=== PATIENT | male | born 1960 | race Two or more races ===

== ENCOUNTER 2024-08-22 02:55 | Emergency (ER) | payer MEDICAID, OTHER ==
[~2024-08-22] VITALS: Ht 172.7 cm; Wt 68.3 kg
--- NOTE | 2024-08-22 03:31 | ED.PDOC ---
Miranda. trauma (HPI) HPI Comments 63-year-old male who came to ER for fall/head injury. Patient was at a [employer], intoxicated with alcohol, went out where he accidentally slipped and fell backwards, hitting the back of his head on some rocks. Noted 3 cm laceration of the back of his head. Unsure if there was any loss of consciousness. Patient later started having episodes nausea and vomiting, Chief Complaint: Fall Injury Time Seen by MD: 03:30 Reviewed notes: Nurses Notes Home Meds Active Scripts Acetaminophen (Acetaminophen Er) 650 Mg Tab, 650 MG PO TIDPRN PRN for 5 Days, #15 TAB Prov:MARCELO LUND MD 08/22/24 Information Source: Patient Mode of Arrival: Wheelchair Severity: Moderate Timing: Minutes Duration: Since onset Prehospital treatment: None Location: Head Location of laceration: Head (Occipital) Mechanism: Blunt trauma, Direct blow, Fall Associated signs and symtoms: ETOH Review of Systems REVIEW OF SYSTEMS: No fever, no chills, or fatigue HEENT: No sore throat, no earache, no congestion, no neck pain. (+) laceration occipital area Cardiac: No chest pain. No palpitations. Lungs: No shortness of breath, no cough. GI: No nausea, no vomiting, no diarrhea, no constipation, no abdominal pain : No dysuria, frequency, or urgency. No hematuria. Musculoskeletal: No joint pain , no joint swelling, no extremity edema. Skin: No rash, no itching. Neuro: No headache, no dizziness, no weakness Vital Signs Vital Signs Date Time Temp Pulse Resp B/P (MAP) Pulse Ox O2 Delivery O2 Flow Rate FiO2 08/22/24 05:45 Room Air* 0 21 08/22/24 05:43 97.7 65 20 118/70 (86) 98 97.7 Physical Exam General: Awake, alert patient appears intoxicated Skin: Skin in warm, dry and intact. Appropriate color for ethnicity. Nailbeds pink with no cyanosis. HEENT: Hematoma over the occipital scalp with a proximally 6 cm irregular laceration. The head is normocephalic and atraumatic. Conjunctivae are clear without exudates or hemorrhage. Sclera is non-icteric. EOM are intact. No signs of nystagmus. Eyelids are normal in appearance without swelling or lesions. Oral mucosa is pink and moist Neck: The neck is supple with normal range of motion. No JVD. No C-spine tenderness Cardiac: Heart rate and rhythm are normal. No murmurs, gallops, or rubs are auscultated. Respiratory: No signs of respiratory distress. Lung sounds are clear in all lobes bilaterally without rales, rhonchi, or wheezes. Abdominal: Abdomen is soft, non-tender without distention. Bowel sounds are present and normoactive in all four quadrants. Extremities: Upper and lower extremities are atraumatic in appearance without deformity or edema. Neurological: The patient is awake, alert and oriented to person, place, and time with normal speech. Speech is clear. There is no facial asymmetry. Sensation intact. Past Medical History PAST MEDICAL HISTORY: Denies Surgical History: Denies all surgeries Family History Family History: Reviewed,noncontributory to illness Social History Smoker: Non-Smoker Alcohol: Denies ETOH Use Drugs: Denies Drug Use Lives In: Home Was a procedure done? Was a procedure done?: Yes Sedation Sedation?: No Laceration Repair : Location Occipital area Length 6 cm Anesthetic: Nothing Laceration Repair Prep: Betadine Laceration Repair Wound Comple: epidermis/dermis repair Laceration Repair: Skin, SQ, Neon (#8) Informed consent obtained: Yes Risks, benefits, and alternati: Yes Differential Diagnosis Multiple Trauma: Closed Head Injury, Fractures, Cerebral Contusion, Hematoma, Laceration X-Ray, Labs, Meds, VS Vital Signs Date Time Temp Pulse Resp B/P (MAP) Pulse Ox O2 Delivery O2 Flow Rate FiO2 08/22/24 05:45 Room Air* 0 21 08/22/24 05:43 97.7 65 20 118/70 (86) 98 97.7 08/22/24 03:25 97.9 65 18 109/78 (88) 95 97.9 Lab Test 08/22/24 04:43 Range/Units White Blood Count 6.5 4.4-10.8 10^3/uL Red Blood Count 5.13 4.5-5.90 10^6/uL Hemoglobin 16.8 13.5-17.5 g/dL Hematocrit 49.5 41.0-53.0 % Mean Corpuscular Volume 96.5 80.0-100.0 fL Mean Corpuscular Hemoglobin 32.7 H 28.0-32.0 pg Mean Corpuscular Hemoglobin Concent 33.9 32.0-36.0 g/dL Red Cell Distribution Width 14.9 H 11.8-14.3 % Platelet Count 176 140-450 10^3/uL Mean Platelet Volume 8.1 6.9-10.8 fL Neutrophils (%) (Auto) 66.3 37.0-80.0 % Lymphocytes (%) (Auto) 24.6 10.0-50.0 % Monocytes (%) (Auto) 6.8 0.0-12.0 % Eosinophils (%) (Auto) 1.5 0.0-7.0 % Basophils (%) (Auto) 0.8 0.0-2.0 % Neutrophils # (Auto) 4.3 1.6-8.6 10 ^3/uL Lymphocytes # (Auto) 1.6 0.4-5.4 10 ^3/uL Monocytes # (Auto) 0.4 0-1.3 10 ^3/uL Eosinophils # (Auto) 0.1 0-0.8 10 ^3/uL Basophils # (Auto) 0 0-0.2 10 ^3/uL Nucleated Red Blood Cells 0.3 % Platelet Estimate Adequate Sodium Level 142 136-145 mmol/L Potassium Level 4.4 3.5-5.1 mmol/L Chloride Level 106 98-107 mmol/L Carbon Dioxide Level 26 20-31 mmol/L Anion Gap 10 5-15 Blood Urea Nitrogen 11 9-23 mg/dL Creatinine 0.97 0.700-1.30 mg/dL Glomerular Filtration Rate Calc 88 >90 mL/min BUN/Creatinine Ratio 11.3 10.0-20.0 Serum Glucose 114 H 74-106 mg/dL Calcium Level 9.7 8.7-10.4 mg/dL Plasma/Serum Blood Alcohol 247.9 H <10 mg/dL Current Medications Medications (Trade) Dose Ordered Sig/Chris Route Start Time Stop Time Status Last Admin Diphtheria/ Tetanus/Acell Pertussis (Boostrix T-Dap) 0.5 ml ONCE ONCE IM 08/22/24 03:15 08/22/24 03:16 DC 08/22/24 05:51 Acetaminophen (Tylenol Tablet) 650 mg ONCE ONCE PO 08/22/24 04:00 08/22/24 04:01 DC 08/22/24 05:50 Ondansetron HCl (Zofran Po) 4 mg ONCE ONCE PO 08/22/24 04:00 08/22/24 04:01 DC 08/22/24 05:50 EXAM: CT HEAD WITHOUT CONTRAST INDICATION: Head injury TECHNIQUE: CT of the head without intravenous contrast. Radiation Dose : 1. Head: CT Dose: CTDI volume is 63.01 mGy. Dose-length product is 1241.52 mGy*cm The dose indicators for CT are the volume Computed Tomography (CT) Dose Index (CTDIvol) and the Dose Length Product (DLP), and are measured in units of mGy and mGy-cm, respectively. These indicators are not patient dose, but values generated from the CT scanner acquisition factors. The report includes radiation exposure data for exposures received during this examination. COMPARISON: None FINDINGS: There is no evidence of acute intracranial hemorrhage, extra-axial collection, mass effect, midline shift, herniation or hydrocephalus. The ventricles, sulci and cisterns are age appropriate. Haris cisterna magna. The garcia-white differentiation is intact. Left maxillary mucosal sinus disease. The remaining visualized paranasal sinuses and mastoid air cells are clear. Moderate left posterior parietal scalp soft tissue swelling and edema. The surrounding soft tissues and osseous structures are otherwise unremarkable. IMPRESSION: 1. No acute intracranial abnormality. 2. Moderate left posterior parietal scalp soft tissue swelling and edema. Radiation optimization: All CT scans at this facility use at least one of these dose optimization techniques: automated exposure control mA and/or kV adjustment per patient size (includes targeted exams where dose is matched to clinical indication) or iterative reconstruction. Time of 1ST Reevaluation: 03:26 Reevaluation 1ST: Unchanged Patient Education/Counseling: Prognosis Family Education/Counseling: Prognosis Departure 1 Departure Time of Disposition: 05:17 Impression: Primary Impression: Head injury Additional Impressions: Scalp laceration Alcohol intoxication Disposition: HOME / SELF CARE / HOMELESS Condition: Stable Additional Instructions: INSTRUCCIONES DE MAYA DE Urgencias Instrucciones: Jennie atentamente todas las instrucciones proporcionadas en tana paquete. Las grapas deben retirarse en un plazo de 5 a 7 clark. Regrese a urgencias o al mdico de cabecera para yancy revisin de la herida en 3 clark. Mantenga la herida seca phillip las primeras 24 horas. Despus, lvela suavemente con agua y jabn y mantngala seca. Aunque le hayan dado el maya del Departamento de Emergencias, esto no significa que tenga un "certificado de buena donya". Hoy no se lam realizado ningn diagnstico definitivo para mike sntomas. Es posible que ests en proceso de desarrollar yancy enfermedad grave. Es por eso que debe regresar al servicio de urgencias sin falta si presenta algn sntoma nuevo o que empeora (especialmente si mike sntomas incluyen dolor en el pecho, dificultad para respirar, dolor abdominal, fiebre, dolor de vadim, confusin, dificultad para milton o caminar). Prasad es muy importante que consulte a un mdico de atencin primaria dentro de los prximos 3 a 5 clark para realizar un seguimiento. Si no puede conseguir yancy kennedy, regrese al servicio de urgencias para yancy nueva evaluacin. Lesin en la vadim: Instrucciones de cuidado Descripcin general La mayora de las lesiones en la vadim son leves. Los golpes, morales y raspaduras en la vadim y la brandi suelen cicatrizar jose y pueden tratarse igual que las lesiones en otras partes del cuerpo. Aunque es poco frecuente, de vez en cuando surge un problema ms grave despus de llegar a casa. Por eso, conviene estar atento a los sntomas phillip ida o dos clark. El seguimiento es fundamental para león tratamiento y seguridad. Asegrese de programar y acudir a todas mike citas, y llame a león mdico si tiene algn problema. Prasad es recomendable estar al tanto de los resultados de mike pruebas y llevar yancy lista de los medicamentos que john. Account Specialist puedes cuidarte en casa? Siga las instrucciones de león mdico. El mdico le indicar si necesita que alguien lo vigile de cerca phillip las prximas 24 horas o ms. Tmatelo con calma phillip los prximos clark o ms si no te sientes jose. Pregntele a león mdico cundo puede volver a realizar actividades cj conducir un automvil, andar en bicicleta u operar maquinaria. Cundo debes pedir ayuda? Llame al 911 en cualquier momento que considere que necesita atencin de emergencia. Por ejemplo, llame si: Tienes yancy convulsin. Te desmayaste (perdiste el conocimiento). Ests confundido o no puedes mantenerte despierto. Tienes un dolor de vadim que empeora y no desaparece. Tiene nuevos cambios en la visin o yancy pupila (la parte [place] en el medio del flaca) es ms yasmani que la otra. Tiene dificultad para hablar, problemas de equilibrio o disminucin de la coordinacin. Llame a león mdico ahora o busque atencin mdica inmediata si: Tiene vmitos nuevos o peores. Te sientes menos alerta. Tienes nueva debilidad o entumecimiento en alguna parte de tu cuerpo. Tiene sntomas nuevos, cj pensamiento confuso o cambios de humor. Preste atencin a los cambios en león donya y asegrese de comunicarse con león mdico si: No mejoras cj esperabas Crditos por lesin en la vadim: Instrucciones de cuidado Actualizado al: 3 de diciembre 2023 Autor: Personal de [facility] [employer] Junta de revisin clnica Toda la educacin de [facility], [employer] es revisada por un equipo que incluye mdicos, enfermeras, profesionales avanzados, dietistas registrados y otros profesionales de la donya. e-Prescriptions Acetaminophen (Acetaminophen Er) 650 Mg Tab 650 MG PO TIDPRN PRN for 5 Days, #15 TAB Prov: MARCELO LUND MD 08/22/24 Comments 63-year-old male with a head injury resulting in scalp laceration or hematoma. Laceration repaired in the ED. Patient improved. He is able to ambulate on his own. Patient and family would like to go home. Discussed return precautions. I reviewed the following notes from the pt's past medical encounters: N/A The following tests were ordered, and results were reviewed by me: (See diagnostic results section) The following test were independently interpreted by me: N/A Additional information was gathered from interviewing the following independent historians: Patient's family members at bedside I reviewed and agreed with the following test results read by other providers: N/A I discussed treatments and results with patient Decision regarding hospitalization or escalation of hospital level of care: Risks and benefits of admission for further treatment of patient's condition was considered however due to patient's stable condition patient will be discharged to follow up closely or return to care for worsening of condition or inability to follow up. Critical Care Note Critical Care Time?: No Stability Stability form required: No Heart Score Heart Score: Heart Score Response (Comments) Value History N/A 0 EKG N/A 0 Age N/A 0 Risk Factors N/A 0 Troponin N/A 0 Total 0 I personally scribed for MARCELO LUND MD ([email or web address]) on 08/22/24 at 03:31. Electronically submitted by Nik Mcmillan ([email or web address]). I personally scribed for MARCELO LUND MD ([email or web address]) on 08/22/24 at 04:42. Electronically submitted by Nik Mcmillan ([facility]). MARCELO LUND MD Aug 22, 2024 03:31
--- NOTE | 2024-08-22 04:04 | DVH ---
EXAM: CT HEAD WITHOUT CONTRAST INDICATION: Head injury TECHNIQUE: CT of the head without intravenous contrast. Radiation Dose : 1. Head: CT Dose: CTDI volume is 63.01 mGy. Dose-length product is 1241.52 mGy*cm The dose indicators for CT are the volume Computed Tomography (CT) Dose Index (CTDIvol) and the Dose Length Product (DLP), and are measured in units of mGy and mGy-cm, respectively. These indicators are not patient dose, but values generated from the CT scanner acquisition factors. The report includes radiation exposure data for exposures received during this examination. COMPARISON: None FINDINGS: There is no evidence of acute intracranial hemorrhage, extra-axial collection, mass effect, midline s hift, herniation or hydrocephalus. The ventricles, sulci and cisterns are age appropriate. Haris cisterna magna. The garcia-white differentiation is intact. Left maxillary mucosal sinus disease. The remaining visualized paranasal sinuses and mastoid air estephania ls are clear. Moderate left posterior parietal scalp soft tissue swelling and edema. The surrounding soft tissues a nd osseous structures are otherwise unremarkable. IMPRESSION: 1. No acute intracranial abnormality. 2. Moderate left posterior parietal scalp soft tissue swelling and edema. Radiation optimization: All CT scans at this facility use at least one of these dose optimization tammy hniques: automated exposure control mA and/or kV adjustment per patient size (includes targeted exam s where dose is matched to clinical indication) or iterative reconstruction.
[2024-08-22 05:13] LABS: Basophils # (auto) 0 10 ^3/uL (0-0.2); Basophils % (auto) 0.8 % (0.0-2.0); Eosinophils # (auto) 0.1 10 ^3/uL (0-0.8); Eosinophils % (auto) 1.5 % (0.0-7.0); Hematocrit 49.5 % (41.0-53.0); Hemoglobin 16.8 g/dL (13.5-17.5); Lymphocytes # (auto) 1.6 10 ^3/uL (0.4-5.4); Lymphocytes % (auto) 24.6 % (10.0-50.0); Mean Corpuscular Hemoglobin 32.7 pg (28.0-32.0); Mean Corpuscular Hgb Conc. 33.9 g/dL (32.0-36.0); Mean Corpuscular Volume 96.5 fL (80.0-100.0); Monocytes # (auto) 0.4 10 ^3/uL (0-1.3); Monocytes % (auto) 6.8 % (0.0-12.0); Neutrophils # (auto) 4.3 10 ^3/uL (1.6-8.6); Neutrophils % (auto) 66.3 % (37.0-80.0); Nucleated Red Blood Cells % 0.3 %; Red Blood Cells 5.13 10^6/uL (4.5-5.90); Red Cell Distribution Width 14.9 % (11.8-14.3); White Blood Cell 6.5 10^3/uL (4.4-10.8)
[2024-08-22 05:15] LABS: Chloride 106 mmol/L (98-107); Potassium 4.4 mmol/L (3.5-5.1); Sodium 142 mmol/L (136-145)
[2024-08-22 05:16] LABS: Anion Gap 10 (5-15); Calcium 9.7 mg/dL (8.7-10.4); Carbon Dioxide 26 mmol/L (20-31)
[2024-08-22] MEDS ORDERED: ACET650T12 PO (05:19)
[2024-08-22 05:21] LABS: BUN/Creatinine Ratio 11.3 (10.0-20.0); Blood Urea Nitrogen 11 mg/dL (9-23)
[2024-08-22 05:22] LABS: Blood Alcohol 247.9 mg/dL (<10); Glucose 114 mg/dL (74-106)
[2024-08-22 05:43] VITALS: BP 118/70; PULSE 65; RESP 20; TEMP 97.7; O2SAT 98
[2024-08-22] MEDS: ONDANSETRON ODT 4 MG TAB PO ONE (05:50)
[2024-08-22] MEDS: ACETAMINOPHEN 325 MG TAB PO ONE (05:50)
[2024-08-22] MEDS: TETANUS-DIPTH-ACEL PERTUSSIS 0.5ML SYR Tdap IM ONE (05:51)
[2024-08-22 06:00] LABS: Platelet Estimate Adequate
[2024-08-22 06:01] LABS: Platelet Count (auto) 176 10^3/uL (140-450)
== END 2024-08-22 06:01 | disposition home or self-care (01) ==
LOC: ER 02:55
DX: S01.01XA Laceration without foreign body of scalp, initial encounter (principal); S09.8XXA Other specified injuries of head, initial encounter; F10.129 Alcohol abuse with intoxication, unspecified; Z79.899 Other long term (current) drug therapy; W01.0XXA Fall on same level from slipping, tripping and stumbling without subsequent striking against object, initial encounter; Y93.89 Activity, other specified; Y92.89 Other specified places as the place of occurrence of the external cause; Y99.8 Other external cause status; Y90.9 Presence of alcohol in blood, level not specified
CPT/HCPCS: 12002; 36415; 70450; 80048; 80320; 85025; 90471; 90715; 99285; Q0162